=== PATIENT | male | born 1960 | race Caucasian/White ===

== ENCOUNTER 2022-09-23 00:05 | Emergency (ER) | payer OTHER, SELFPAY ==
[2022-09-23 00:16] VITALS: BP 150/84; PULSE 80; RESP 16; TEMP 36.2; O2SAT 97; BMI 28.0
--- NOTE | 2022-09-23 00:43 | ED_ITS ---
HPI - Male Genitourinary <Luzmaria Salter - Last Filed: 09/23/22 18:25> General Chief complaint: Urogenital-Male Stated complaint: possible kidney stone Time Seen by Provider: 09/23/22 00:41 Source: patient Mode of arrival: Ambulatory Limitations: no limitations History of Present Illness HPI Narrative: This is a 62-year-old male with history of hypertension on lisinopril, osteoarthritis taking meloxicam daily and recurrent kidney stones who presents with complaint of right flank pain that is now been present for 2 days. Patient states pain started 2 days ago higher P thought it was maybe kidney stone and passing as it was hurting a little bit lower on the right but has since moved back up to the right flank and not really anteriorly anymore. Patient states he started having nausea and vomiting in the past 12 hours. He states he is had a lot of difficulty keeping down fluids. He states he was sweaty on the right ovary here on the [place] but no other fevers. He states he is had normal stools no black or blood, no diarrhea constipation. He states he had some blood a cou ple days ago in his urine. Does not notice any right now no dysuria, urgency or frequency. Patient states he is had kidney stones many times he thinks at least 30. He has had ureteroscopy, lithotripsy he has had ureteral stents in the past but does not have any present currently. He states he has a known large stone on the left but that his pain is located on the right. He is concerned that he might have a large stone he is unable to pass today because his pain has been persisting for the last 2 days and getting worse and now has not been able to keep fluids down. Patient states other surgeries he is had knee surgery in the past. Questionable allergy to penicillin according to the patient he states he has been taking amoxicillin for respiratory infection recently and has been tolerating that without issue. Denies tobacco, denies alcohol or illicit substances. Patient lives in [place], [place]. He was visiting family [facility] and arrived by [employer] (air taxi) this evening. Related Data Previous Rx's Medication Instructions Recorded ondansetron 4 mg disintegrating 4 mg PO Q6H PRN nausea and 09/23/22 tablet vomiting #10 tabs ondansetron 4 mg disintegrating 4 mg PO TID-QID PRN nausea and 09/23/22 tablet vomiting #10 tabs oxycodone 5 mg tablet 5 mg PO Q6H PRN pain #14 tabs 09/23/22 oxycodone 5 mg tablet 5 mg PO Q6H PRN pain #14 tabs 09/23/22 tamsulosin 0.4 mg capsule (Flomax) 0.4 mg PO DAILY #30 caps 09/23/22 tamsulosin 0.4 mg capsule (Flomax) 0.4 mg PO DAILY #7 caps 09/23/22 Allergies Allergy/AdvReac Type Severity Reaction Status Date / Time No Known Drug Allergies Allergy Verified 09/23/22 07:48 Review of Systems <Luzmaria Salter DO - Last Filed: 09/23/22 18:25> Review of Systems ROS Unobtainable: All systems reviewed & are unremarkable except as noted in HPI and below Patient History <Luzmraia Salter DO - Last Filed: 09/23/22 18:25> Social History Smoking Status: Never smoker Smoking Status: Never smoker alcohol intake frequency: a few times a month Substance Use Type: does not use Exam <Luzmaria Salter DO - Last Filed: 09/23/22 18:25> Narrative Exam Narrative: GENERAL: Alert and oriented x three, male in mild distress. HEENT: Head normocephalic, atraumatic, EOMI, pupils reactive, face symmetric, moist mucous membranes NECK: Supple, full range of motion CARDIOVASCULAR: Regular rate and rhythm without murmurs, rubs or gallops. RESPIRATORY: Breath sounds equal bilaterally, no wheezes rales or rhonchi. ABDOMEN: Soft, nontender. Normoactive bowel sounds all 4 quadrants. No guarding or rebound, rigidity, no mass : No CVA tenderness EXTREMITIES: Normal range of motion, no clubbing or edema. Neurovascularly intact NEUROLOGICAL: Cranial nerves II through XII grossly intact. Moving all extremities. Normal gait. SKIN: Warm, dry, no petechiae, no rashes or lesions. Initial Vital Signs Initial Vital Signs: Vital Signs Temperature 97.2 F L 09/23/22 00:16 Pulse Rate 80 09/23/22 00:16 Respiratory Rate 16 09/23/22 00:16 Blood Pressure 150/84 H 09/23/22 00:16 Pulse Oximetry 97 09/23/22 00:16 Oxygen Delivery Method Room Air 09/23/22 00:16 <Pietro Erazo DO - Last Filed: 09/24/22 06:51> Initial Vital Signs Initial Vital Signs: Vital Signs Temperature 97.2 F L 09/23/22 00:16 Pulse Rate 80 09/23/22 00:16 Respiratory Rate 16 09/23/22 00:16 Blood Pressure 150/84 H 09/23/22 00:16 Pulse Oximetry 97 09/23/22 00:16 Oxygen Delivery Method Room Air 09/23/22 00:16 Course <Luzmaria Salter, DO - Last Filed: 09/23/22 18:25> Orders Ordered: Discontinued Medications Hydromorphone HCl (Hydromorphone 0.5 Mg Inj) 0.5 mg IV NOW ONE Stop: 09/23/22 03:43 Last Admin: 09/23/22 04:06 Dose: 0.5 mg Documented By: BETTY Sodium Chloride (Normal Saline 0.9%) 1,000 mls @ 1,000 mls/hr IV BOLUS ONE Stop: 09/23/22 01:48 Last Infusion: 09/23/22 02:40 Dose: 0 mls/hr Documented By: Admin: 09/23/22 00:57 Dose: 1,000 mls/hr Documented By: Sodium Chloride (Normal Saline 0.9%) 1,000 mls @ 1,000 mls/hr IV BOLUS ONE Stop: 09/23/22 03:12 Last Infusion: 09/23/22 04:21 Dose: 0 mls/hr Documented By: Admin: 09/23/22 02:39 Dose: 1,000 mls/hr Documented By: SB Lidocaine HCl 6 ml/ Sodium (Chloride) 56 mls @ 336 mls/hr IV NOW ONE Stop: 09/23/22 02:14 Last Infusion: 09/23/22 02:57 Dose: 0 mls/hr Documented By: Admin: 09/23/22 02:40 Dose: 336 mls/hr Documented By: BETTY Ketorolac Tromethamine (Ketorolac 30 Mg/Ml Vial) 15 mg IV NOW ONE Stop: 09/23/22 00:50 Last Admin: 09/23/22 00:55 Dose: 15 mg Documented By: Metoclopramide HCl (Metoclopramide 10 Mg/2 Ml Inj) 10 mg IV NOW ONE Stop: 09/23/22 03:43 Last Admin: 09/23/22 04:06 Dose: 10 mg Documented By: SB Ondansetron HCl (Ondansetron 4 Mg/2 Ml Inj) 4 mg IV NOW ONE Stop: 09/23/22 00:50 Last Admin: 09/23/22 00:55 Dose: 4 mg Documented By: Ondansetron HCl (Ondansetron 4 Mg Odt Prepack) 1 bottle MISC SEEINSTR ONE Stop: 09/23/22 06:30 Last Admin: 09/23/22 07:49 Dose: 1 bottle Documented By: SPF Oxycodone/Acetaminophen (Oxycodone/Apap 5/325 Prepack) 1 bottle MISC SEEINSTR ONE Stop: 09/23/22 06:30 Last Admin: 09/23/22 07:49 Dose: 1 bottle Documented By: SPF Tamsulosin HCl (Tamsulosin 0.4 Mg Capsule) 0.4 mg PO NOW ONE Stop: 09/23/22 02:14 Last Admin: 09/23/22 02:41 Dose: 0.4 mg Documented By: BETTY Vital Signs Vital signs: Vital Signs - 8 hr 09/23/22 05:12 09/23/22 07:55 Pulse Rate 52 L 61 Respiratory Rate 16 14 Blood Pressure 135/80 118/67 Pulse Oximetry 96 95 Oxygen Delivery Method Room Air Room Air <Pietro Erazo DO - Last Filed: 09/24/22 06:51> Orders Ordered: Discontinued Medications Hydromorphone HCl (Hydromorphone 0.5 Mg Inj) 0.5 mg IV NOW ONE Stop: 09/23/22 03:43 Last Admin: 09/23/22 04:06 Dose: 0.5 mg Documented By: BETTY Sodium Chloride (Normal Saline 0.9%) 1,000 mls @ 1,000 mls/hr IV BOLUS ONE Stop: 09/23/22 01:48 Last Infusion: 09/23/22 02:40 Dose: 0 mls/hr Documented By: Admin: 09/23/22 00:57 Dose: 1,000 mls/hr Documented By: Sodium Chloride (Normal Saline 0.9%) 1,000 mls @ 1,000 mls/hr IV BOLUS ONE Stop: 09/23/22 03:12 Last Infusion: 09/23/22 04:21 Dose: 0 mls/hr Documented By: Admin: 09/23/22 02:39 Dose: 1,000 mls/hr Documented By: SB Lidocaine HCl 6 ml/ Sodium (Chloride) 56 mls @ 336 mls/hr IV NOW ONE Stop: 09/23/22 02:14 Last Infusion: 09/23/22 02:57 Dose: 0 mls/hr Documented By: Admin: 09/23/22 02:40 Dose: 336 mls/hr Documented By: SB Ketorolac Tromethamine (Ketorolac 30 Mg/Ml Vial) 15 mg IV NOW ONE Stop: 09/23/22 00:50 Last Admin: 09/23/22 00:55 Dose: 15 mg Documented By: Metoclopramide HCl (Metoclopramide 10 Mg/2 Ml Inj) 10 mg IV NOW ONE Stop: 09/23/22 03:43 Last Admin: 09/23/22 04:06 Dose: 10 mg Documented By: BETTY Ondansetron HCl (Ondansetron 4 Mg/2 Ml Inj) 4 mg IV NOW ONE Stop: 09/23/22 00:50 Last Admin: 09/23/22 00:55 Dose: 4 mg Documented By: Ondansetron HCl (Ondansetron 4 Mg Odt Prepack) 1 bottle MISC SEEINSTR ONE Stop: 09/23/22 06:30 Last Admin: 09/23/22 07:49 Dose: 1 bottle Documented By: SPF Oxycodone/Acetaminophen (Oxycodone/Apap 5/325 Prepack) 1 bottle MISC SEEINSTR ONE Stop: 09/23/22 06:30 Last Admin: 09/23/22 07:49 Dose: 1 bottle Documented By: SPF Tamsulosin HCl (Tamsulosin 0.4 Mg Capsule) 0.4 mg PO NOW ONE Stop: 09/23/22 02:14 Last Admin: 09/23/22 02:41 Dose: 0.4 mg Documented By: BETTY Vital Signs Vital signs: Vital Signs - 8 hr 09/23/22 05:12 09/23/22 07:55 Pulse Rate 52 L 61 Respiratory Rate 16 14 Blood Pressure 135/80 118/67 Pulse Oximetry 96 95 Oxygen Delivery Method Room Air Room Air MDM - Male Genitourinary <Luzmariabettie Salter, DO - Last Filed: 09/23/22 18:25> Lab Data 09/23/22 00:53 09/23/22 04:20 Labs: Lab Results 09/23/22 09/23/22 09/23/22 Range/Units 00:45 00:53 00:53 WBC 12.0 H (4.5-11.0) X10^3/uL RBC 5.07 (4.5-5.9) X10^6/uL Hgb 15.6 (13.5-17.5) g/dL Hct 45.1 (41-53) % MCV 88.9 (80-100) fL MCH 30.8 (26-34) PG MCHC 34.6 (30-36) % RDW 13.9 (11.6-14.8) % Plt Count 217 (150-400) X10^3/uL Neut % (Auto) 77.7 H (50-75) % Lymph % (Auto) 12.6 L (25-40) % Bartholomew % (Auto) 7.1 (3-14) % Eos % (Auto) 2.0 (2-4) % Baso % (Auto) 0.6 (0-2) % Neut # (Auto) 9300 H (9241-8749) /uL Lymph # (Auto) 1500 (9579-8483) /uL Bartholomew # (Auto) 900 (0-900) /uL Eos # (Auto) 200 (0-450) /uL Baso # (Auto) 100 (0-100) /uL Sodium 130 L (137-145) mmol/L Potassium 4.2 (3.4-5.1) mmol/L Chloride 98 (98-107) mmol/L Carbon Dioxide 26 (22-32) mmol/L BUN 20 (9-20) mg/dL Creatinine 1.51 H (0.66-1.25) mg/dL Estimated GFR 53 L (>60) mL/min BUN/Creatinine Ratio 13.2 (6-22) Glucose 178 H (80-110) mg/dL Calcium 9.1 (8.4-10.2) mg/dL Total Bilirubin 1.3 (0.2-1.3) mg/dL AST 63 H (17-59) IU/L ALT 175 H (<50) IU/L Alkaline Phosphatase 73 (38-126) U/L Total Protein 7.3 (6.3-8.2) g/dL Albumin 3.8 (3.5-5.0) g/dL Globulin 3.5 (1.7-4.1) g/dL Albumin/Globulin Ratio 1.1 (1.0-2.8) Lipase 89 (23-300) U/L Urine RBC 30-100/hpf H (0-5/HPF) Urine WBC 1-5/hpf (0-5/HPF) Ur Squamous Epith Cells None seen (0-5/HPF) Urine Bacteria None seen (None) Micro UA Comment * 09/23/22 Range/Units 04:20 WBC (4.5-11.0) X10^3/uL RBC (4.5-5.9) X10^6/uL Hgb (13.5-17.5) g/dL Hct (41-53) % MCV (80-100) fL MCH (26-34) PG MCHC (30-36) % RDW (11.6-14.8) % Plt Count (150-400) X10^3/uL Neut % (Auto) (50-75) % Lymph % (Auto) (25-40) % Bartholomew % (Auto) (3-14) % Eos % (Auto) (2-4) % Baso % (Auto) (0-2) % Neut # (Auto) (8195-9344) /uL Lymph # (Auto) (1798-4097) /uL Bartholomew # (Auto) (0-900) /uL Eos # (Auto) (0-450) /uL Baso # (Auto) (0-100) /uL Sodium 131 L (137-145) mmol/L Potassium 3.8 (3.4-5.1) mmol/L Chloride 105 (98-107) mmol/L Carbon Dioxide 23 (22-32) mmol/L BUN 18 (9-20) mg/dL Creatinine 1.37 H (0.66-1.25) mg/dL Estimated GFR 59 L (>60) mL/min BUN/Creatinine Ratio 13.1 (6-22) Glucose 168 H (80-110) mg/dL Calcium 7.7 L (8.4-10.2) mg/dL Total Bilirubin (0.2-1.3) mg/dL AST (17-59) IU/L ALT (<50) IU/L Alkaline Phosphatase (38-126) U/L Total Protein (6.3-8.2) g/dL Albumin (3.5-5.0) g/dL Globulin (1.7-4.1) g/dL Albumin/Globulin Ratio (1.0-2.8) Lipase (23-300) U/L Urine RBC (0-5/HPF) Urine WBC (0-5/HPF) Ur Squamous Epith Cells (0-5/HPF) Urine Bacteria (None) Micro UA Comment Urine Dip Bedside Urine Glucose Negative Bedside Urine Bilirubin - Negative Bedside Urine Ketone - Negative Urine Specific [place] 1.015 Bedside Urine Occult Blood +++ Bedside Urine pH 6.0 Bedside Urine Protein - Negative Bedside Urine Urobilinogen - Negative Bedside Urine Nitrite - Negative Bedside Urine Leukocytes + [address] scan - abdomen/pelvis: Radiologist's Impression: [place] [id number] CT Scan Report Signed Patient: Esteban Estrada MR#: [id number] : 1960 Acct:[id number] Age/Sex: 62 / M Date of Service: 09/23/22 Loc: ED Accession Number: [id number] ?? Procedure: CT kidney ureter bladder (KUB) Ordering Provider: Luzmaria Salter D.O. PROCEDURE:? CT KIDNEY URETER BLADDER (KUB) ? INDICATIONS:? R flank pain x 12 hours, n/v, hx stones ? TECHNIQUE:? Axial sections were acquired from the lung bases to the pubic symphysis.? Coronal and sagittal reformats were performed.? For radiation dose reduction, the following was used: ?automated exposure control, adjustment of mA and/or kV according to patient size.? ? COMPARISON:? None. ? FINDINGS:? Image quality:? Excellent.? ? Lung bases:? Unremarkable.? ? Heart:? No significant findings. ? URINARY: Right Kidney:? Moderate hydronephrosis.? No renal calculi.? Exophytic simple cyst is present. Right Ureter:? Moderate hydroureter.? Mid right ureteral calculus measuring 7 mm Hounsfield units 1018.? ? Left Kidney:? 2.2 cm superior left renal pole calcification, Hounsfield units 1030. No obstruction.? Left Ureter:? No hydroureter.? ? Bladder:? Normal wall thickness. No stones. ? ? ? ABDOMEN: Liver:? Hepatic steatosis is present. Gallbladder:? Unremarkable.? ? Biliary ducts:? Unremarkable.? ? Pancreas:? Unremarkable.? ? Spleen:? Unremarkable.? ? Adrenal Glands:? Unremarkable.? ? ? Stomach and Bowel:? Stomach, small bowel loops, and colon are unremarkable.? Peritoneum:? No abnormal intraperitoneal fluid.? No free air.? ? Ventral Wall: ? Fat containing ventral hernia.? Abdominal Nodes:? No enlarged retroperitoneal or mesenteric lymph nodes.? Vessels:? Aorta and inferior vena cava are normal in size.? ? PELVIS: Pelvic Organs:? Unremarkable.? ? Pelvic Nodes: Unremarkable. Miscellaneous: No inguinal hernias are seen. ? ? ? Bones:? Unremarkable. ? IMPRESSION:? ? Moderate right hydronephrosis and hydroureter secondary to a mid ureteral calculus. ? Non-obstructing left renal calculus. ? ? ? Dictated by: Natalie Vega M.D. on 09/23/2022 at 1:32 ? ? Approved by: Natalie Vega M.D. on 09/23/2022 at 1:34?? MDM Narrative Medical decision making narrative: 62-year-old male presents with symptoms consistent with his prior kidney stones. Workup does show hematuria, 1-5 wbc's no bacteria. No nitrates. Patient urine cultured. CT KUB shows a 7 mm stone mid ureter with moderate hydro. Patient's creatinine is 1.51 no priors for comparison after discussion with patient he is thinks he has been told in the past it was elevated but he is not 100% sure. BUN at 20, potassium and chloride are normal. Glucose is 178. AST ALT are slightly elevated at 63 and 175 what patient states he has been told in the past. Sodium is 130, patient does have white count of 12, neutrophils 77% normal hemoglobin and platelets. Discussed with patient his urologist is Dr. Prather [facility]. He has not seen him in several years. Patient pain is improved at 5/10 much more tolerable but he is open some additional pain medication. Discussed with patient will repeat fluids give a dose of Flomax, repeat his BMP. On recheck patient's fluids are running slowly on the 2 L he is about custodial done. Pain is starting to come back, we will give an additional dose of narcotic pain medication as well as antinausea medication. Patient's repeat BMP after fluids shows a creatinine of 1.37, sodium is 131. If pain controlled plan for d/c home with urology follow up if not we will consult Urology for transfer. <Pietro Erazo DO - Last Filed: 09/24/22 06:51> Lab Data Labs: Lab Results 09/23/22 09/23/22 09/23/22 Range/Units 00:45 00:53 00:53 WBC 12.0 H (4.5-11.0) X10^3/uL RBC 5.07 (4.5-5.9) X10^6/uL Hgb 15.6 (13.5-17.5) g/dL Hct 45.1 (41-53) % MCV 88.9 (80-100) fL MCH 30.8 (26-34) PG MCHC 34.6 (30-36) % RDW 13.9 (11.6-14.8) % Plt Count 217 (150-400) X10^3/uL Neut % (Auto) 77.7 H (50-75) % Lymph % (Auto) 12.6 L (25-40) % Bartholomew % (Auto) 7.1 (3-14) % Eos % (Auto) 2.0 (2-4) % Baso % (Auto) 0.6 (0-2) % Neut # (Auto) 9300 H (5910-5921) /uL Lymph # (Auto) 1500 (0524-7461) /uL Bartholomew # (Auto) 900 (0-900) /uL Eos # (Auto) 200 (0-450) /uL Baso # (Auto) 100 (0-100) /uL Sodium 130 L (137-145) mmol/L Potassium 4.2 (3.4-5.1) mmol/L Chloride 98 (98-107) mmol/L Carbon Dioxide 26 (22-32) mmol/L BUN 20 (9-20) mg/dL Creatinine 1.51 H (0.66-1.25) mg/dL Estimated GFR 53 L (>60) mL/min BUN/Creatinine Ratio 13.2 (6-22) Glucose 178 H (80-110) mg/dL Calcium 9.1 (8.4-10.2) mg/dL Total Bilirubin 1.3 (0.2-1.3) mg/dL AST 63 H (17-59) IU/L ALT 175 H (<50) IU/L Alkaline Phosphatase 73 (38-126) U/L Total Protein 7.3 (6.3-8.2) g/dL Albumin 3.8 (3.5-5.0) g/dL Globulin 3.5 (1.7-4.1) g/dL Albumin/Globulin Ratio 1.1 (1.0-2.8) Lipase 89 (23-300) U/L Urine RBC 30-100/hpf H (0-5/HPF) Urine WBC 1-5/hpf (0-5/HPF) Ur Squamous Epith Cells None seen (0-5/HPF) Urine Bacteria None seen (None) Micro UA Comment * 09/23/22 Range/Units 04:20 WBC (4.5-11.0) X10^3/uL RBC (4.5-5.9) X10^6/uL Hgb (13.5-17.5) g/dL Hct (41-53) % MCV (80-100) fL MCH (26-34) PG MCHC (30-36) % RDW (11.6-14.8) % Plt Count (150-400) X10^3/uL Neut % (Auto) (50-75) % Lymph % (Auto) (25-40) % Bartholomew % (Auto) (3-14) % Eos % (Auto) (2-4) % Baso % (Auto) (0-2) % Neut # (Auto) (4999-5364) /uL Lymph # (Auto) (9529-1167) /uL Bartholomew # (Auto) (0-900) /uL Eos # (Auto) (0-450) /uL Baso # (Auto) (0-100) /uL Sodium 131 L (137-145) mmol/L Potassium 3.8 (3.4-5.1) mmol/L Chloride 105 (98-107) mmol/L Carbon Dioxide 23 (22-32) mmol/L BUN 18 (9-20) mg/dL Creatinine 1.37 H (0.66-1.25) mg/dL Estimated GFR 59 L (>60) mL/min BUN/Creatinine Ratio 13.1 (6-22) Glucose 168 H (80-110) mg/dL Calcium 7.7 L (8.4-10.2) mg/dL Total Bilirubin (0.2-1.3) mg/dL AST (17-59) IU/L ALT (<50) IU/L Alkaline Phosphatase (38-126) U/L Total Protein (6.3-8.2) g/dL Albumin (3.5-5.0) g/dL Globulin (1.7-4.1) g/dL Albumin/Globulin Ratio (1.0-2.8) Lipase (23-300) U/L Urine RBC (0-5/HPF) Urine WBC (0-5/HPF) Ur Squamous Epith Cells (0-5/HPF) Urine Bacteria (None) Micro UA Comment Urine Dip Bedside Urine Glucose Negative Bedside Urine Bilirubin - Negative Bedside Urine Ketone - Negative Urine Specific [place] 1.015 Bedside Urine Occult Blood +++ Bedside Urine pH 6.0 Bedside Urine Protein - Negative Bedside Urine Urobilinogen - Negative Bedside Urine Nitrite - Negative Bedside Urine Leukocytes + 70 Esterase MDM Narrative Medical decision making narrative: 62-year-old male presents with symptoms consistent with his prior kidney stones. Workup does show hematuria, 1-5 wbc's no bacteria. No nitrates. Patient urine cultured. CT KUB shows a 7 mm stone mid ureter with moderate hydro. Patient's creatinine is 1.51 no priors for comparison after discussion with patient he is thinks he has been told in the past it was elevated but he is not 100% sure. BUN at 20, potassium and chloride are normal. Glucose is 178. AST ALT are slightly elevated at 63 and 175 what patient states he has been told in the past. Sodium is 130, patient does have white count of 12, neutrophils 77% normal hemoglobin and platelets. Discussed with patient his urologist is Dr. Prather [facility]. He has not seen him in several years. Patient pain is improved at 5/10 much more tolerable but he is open some additional pain medication. Discussed with patient will repeat fluids give a dose of Flomax, repeat his BMP. On recheck patient's fluids are running slowly on the 2 L he is about custodial done. Pain is starting to come back, we will give an additional dose of narcotic pain medication as well as antinausea medication. Patient's repeat BMP after fluids shows a creatinine of 1.37, sodium is 131. If pain controlled plan for d/c home with urology follow up if not we will consult Urology for transfer. [id number] ([facility]ro) patient called and requested Rx be sent instead to [facility] in [place] ([address] I have resubmitted the prescriptions and called the [facility] in [place] to cancel those Discharge Plan Departure Patient Disposition: Home Clinical Impression: Hyponatremia, Acute kidney injury, Kidney stone on right side, Renal cyst, right Instructions: DI for Kidney Stones Activity Restrictions/Additional Instructions: Follow up with your urology team, call Saturday morning for an appointment. You have a 7mm stone on the left mid ureter on CT imaging with some moderate swelling of the kidney. Your creatinine today was 1.51 and improved to 1.37, you should follow up to verify if this is your normal renal function or if decreased in the next 2-3 days. Take flomax once daily until gone. You can take tylenol 1000 mg every 6 hours and/or ibuprofen 600 mg every 6 hours. If in adequate you can take 1-2 tablets of oxycodone every 6 hours as needed for pain. This medication can make you sleepy do not drive, perform hazardous activities or make any major decisions while taking it. This medication will make you constipated please take a stool softener once to twice daily until stools are soft and regular. Prescription sent to [facility] in [place]. Please return for fevers, new or worsening abdominal back or flank pain, persistent vomiting, black or bloody stools, inability urinate or other new or concerning changes. Prescriptions: New tamsulosin [Flomax] 0.4 mg capsule 0.4 mg PO DAILY Qty: 7 0RF ondansetron 4 mg tablet,disintegrating 4 mg PO Q6H PRN (Reason: nausea and vomiting) Qty: 10 0RF oxycodone 5 mg tablet 5 mg PO Q6H PRN (Reason: pain) Qty: 14 0RF tamsulosin [Flomax] 0.4 mg capsule 0.4 mg PO DAILY Qty: 30 0RF ondansetron 4 mg tablet,disintegrating 4 mg PO TID-QID PRN (Reason: nausea and vomiting) Qty: 10 0RF oxycodone 5 mg tablet 5 mg PO Q6H PRN (Reason: pain) Qty: 14 0RF Referrals: Bartolo Saeed MD [Non-Staff] - Stand Alone Forms: Patient Portal/API
--- NOTE | 2022-09-23 00:49 | DI.CT.S_ITS ---
PROCEDURE: CT KIDNEY URETER BLADDER (KUB) INDICATIONS: R flank pain x 12 hours, n/v, hx stones TECHNIQUE: Axial sections were acquired from the lung bases to the pubic symphysis. Coronal and sagittal reformats were performed. For radiation dose reduction, the following was used: automated exposure control, adjustment of mA and/or kV according to patient size. COMPARISON: None. FINDINGS: Image quality: Excellent. Lung bases: Unremarkable. Heart: No significant findings. URINARY: Right Kidney: Moderate hydronephrosis. No renal calculi. Exophytic simple cyst is present. Right Ureter: Moderate hydroureter. Mid right ureteral calculus measuring 7 mm Hounsfield units 1018. Left Kidney: 2.2 cm superior left renal pole calcification, Hounsfield units 1030. No obstruction. Left Ureter: No hydroureter. Bladder: Normal wall thickness. No stones. ABDOMEN: Liver: Hepatic steatosis is present. Gallbladder: Unremarkable. Biliary ducts: Unremarkable. Pancreas: Unremarkable. Spleen: Unremarkable. Adrenal Glands: Unremarkable. Stomach and Bowel: Stomach, small bowel loops, and colon are unremarkable. Peritoneum: No abnormal intraperitoneal fluid. No free air. Ventral Wall: Fat containing ventral hernia. Abdominal Nodes: No enlarged retroperitoneal or mesenteric lymph nodes. Vessels: Aorta and inferior vena cava are normal in size. PELVIS: Pelvic Organs: Unremarkable. Pelvic Nodes: Unremarkable. Miscellaneous: No inguinal hernias are seen. Bones: Unremarkable. IMPRESSION: Moderate right hydronephrosis and hydroureter secondary to a mid ureteral calculus. Non-obstructing left renal calculus. Dictated by: Natalie Vega M.D. on 09/23/2022 at 1:32 Approved by: Natalie Vega M.D. on 09/23/2022 at 1:34
[2022-09-23] MEDS: KETOROLAC 30 MG/ML VIAL 15 MG IV (00:55)
[2022-09-23] MEDS: ONDANSETRON 4 MG/2 ML INJ IV (00:55)
[2022-09-23] MEDS: SODIUM CHLORIDE 0.9% 1,000 ML 1000 ML IV ×2 (00:57→02:39)
[2022-09-23 01:04] LABS: Add Manual Diff / Slide Review NO; Basophils Absolute Auto 100 /uL (0-100); Basophils Percent Auto 0.6 % (0-2); Eosinophils Absolute Auto 200 /uL (0-450); Hematocrit 45.1 % (41-53); Hemoglobin 15.6 g/dL (13.5-17.5); Lymphocytes Absolute Auto 1500 /uL (1100-4500); Lymphocytes Percent Auto 12.6 % (25-40); Mean Corpuscular HGB Conc 34.6 % (30-36); Mean Corpuscular Hemoglobin 30.8 PG (26-34); Mean Corpuscular Volume 88.9 fL (80-100); Monocytes Absolute Auto 900 /uL (0-900); Monocytes Percent Auto 7.1 % (3-14); Neutrophils Absolute Auto 9300 /uL (1500-7000); Neutrophils Percent Auto 77.7 % (50-75); Platelet Count 217 X10^3/uL (150-400); Red Blood Cell Count 5.07 X10^6/uL (4.5-5.9); Red Cell Distribution Width 13.9 % (11.6-14.8)
[2022-09-23 01:07] LABS: Bacteria Urine None Seen; RBC Urine 30-100/HPF (0-5/HPF); Squamous Epithelial Cell Urine None Seen (0-5/HPF); WBC Urine 1-5/HPF (0-5/HPF)
[2022-09-23 01:12] LABS: Alanine Aminotransferase 175 IU/L (<50); Albumin 3.8 g/dL (3.5-5.0); Albumin Globulin Ratio 1.1 (1.0-2.8); Alkaline Phosphatase 73 U/L (38-126); Aspartate Aminotransferase 63 IU/L (17-59); BUN Creatinine Ratio 13.2 (6-22); Bilirubin Total 1.3 mg/dL (0.2-1.3); Blood Urea Nitrogen 20 mg/dL (9-20); Calcium 9.1 mg/dL (8.4-10.2); Carbon Dioxide 26 mmol/L (22-32); Chloride 98 mmol/L (98-107); Estimated Glomerular Filt Rate 53 mL/min (>60); Globulin 3.5 g/dL (1.7-4.1); Glucose 178 mg/dL (80-110); HEMOLYSIS < 15 (0-50); Lipase 89 U/L (23-300); Potassium 4.2 mmol/L (3.4-5.1); Sodium 130 mmol/L (137-145); Total Protein 7.3 g/dL (6.3-8.2)
[2022-09-23] MEDS: LIDOCAINE 2% (PF) 6 ML in SODIUM CHLORIDE 0.9% 50 ML 336 ML IV (02:40)
[2022-09-23] MEDS: TAMSULOSIN 0.4 MG CAPSULE PO (02:41)
[2022-09-23] MEDS: HYDROMORPHONE 0.5 MG INJ IV (04:06)
[2022-09-23] MEDS: METOCLOPRAMIDE 10 MG/2 ML INJ IV (04:06)
[2022-09-23 04:38] LABS: BUN Creatinine Ratio 13.1 (6-22); Blood Urea Nitrogen 18 mg/dL (9-20); Calcium 7.7 mg/dL (8.4-10.2); Carbon Dioxide 23 mmol/L (22-32); Chloride 105 mmol/L (98-107); Estimated Glomerular Filt Rate 59 mL/min (>60); Glucose 168 mg/dL (80-110); HEMOLYSIS < 15 (0-50); Potassium 3.8 mmol/L (3.4-5.1); Sodium 131 mmol/L (137-145)
[2022-09-23 05:12] VITALS: BP 135/80; PULSE 52; RESP 16; O2SAT 96
[2022-09-23] MEDS: ONDANSETRON 4 MG ODT PREPACK 1 BOTTLE MISC (07:49)
[2022-09-23] MEDS: OXYCODONE/APAP 5/325 PREPACK 1 BOTTLE MISC (07:49)
[2022-09-23 07:55] VITALS: BP 118/67; PULSE 61; RESP 14; O2SAT 95
== END 2022-09-23 08:00 | disposition home or self-care (01) ==
PROVIDERS: Emergency Provider Emergency Medicine
DX: N20.0 Calculus of kidney (principal); N20.1 Calculus of ureter; E87.1 Hypo-osmolality and hyponatremia; N17.9 Acute kidney failure, unspecified
CPT/HCPCS: 36415; 74176; 80048; 80053; 81003; 81015; 83690; 85025; 87086; 96361; 96365; 96375; 99284; J1170; J1885; J2405; J2765